=== PATIENT | female | born 1940 | race Caucasian/White ===

== ENCOUNTER 2016-10-30 17:25 | Inpatient (IN) | payer MEDICAID ==
[~2016-10-30] VITALS: Ht 165.1 cm; Wt 115.3 kg
--- NOTE | ~2016-10-30 | ECH ---
Transthoracic Echocardiography Report (TTE) Demographics Patient Name RANDY HINES Date of Study 11/02/2016 Patient Number [id number] Visit Number [id number] Date of 1940 Room Number 429 Accession Number [id number] Gender Female Age 76 year(s) Referring Stephan Blair Industrial Automation Engineer Moira Sims [facility] Physician MD Tristan Bucio MD Physician Interpreting Edel Malagon MD [employer] Physician Supervising Ordering Physician Stephan Blair MD, MD/P Nurse Stress Rn Cvor Conclusions Summary Technically fair exam. The estimated left ventricular ejection fraction is 60-65%. Mild to moderate left ventricular hypertrophy. Diastolic assessment reveals Grade I diastolic dysfunction. Mild-moderate tricuspid regurgitation by color Doppler. There is mild pulmonary hypertension. The pulmonary pressure (RVSP) is 43 mmHg. Procedure Type of Study TTE procedure:Echo Complete SF. Procedure Date Date: 11/02/2016 Start: 07:30 AM Technical Quality: Fair due to body habitus. Indications:Elevated Troponin. Appropriate Use Criteria: 9 Height: 65 inches Weight: 242 pounds BSA: 2.15 m Rhythm: Within normal limits HR: 76 bpm BP: 107/63 mmHg M-Mode/2D Measurements LV Diastolic Dimension: 3.81 cm LV Systolic Dimension: 3.01 cm LV Septum Diastolic: 1.53 cm LV PW Diastolic: 1.32 cm AO Root Dimension: 2.79 cm Cardiac Output: 5.41 l/min LA Dimension: 3.51 cm Cardiac Index: 2.52 l/min*m LA volume index: 15 ml/m LVOT: 2.22 cm RV Base: 3.2 cm LVOT VTI: 18.41 cm RV Mid: 2.5 cm LV Stroke volume: 71.22 ml RV Length: 5.8 cm LV Stroke volume index: 33.13 ml/m Doppler Measurements AV Mean Gradient: 3.02 mmHg MV Peak E-Wave: 0.58 m/s LVOT Peak Velocity: 0.79 m/s MV Peak A-Wave: 0.72 m/s AV Area (Continuity):2.99 cm MV P1/2t: 74.1 msec TR Velocity:3.1 m/s TR Gradient:38.44 mmHg MV Deceleration Time: 261.1 msec Estimated RAP:5 mmHg MV Area (PHT): 2.97 cm Estimated RVSP: 43 mmHg PV Peak Velocity: 0.64 m/s PV Peak Gradient: 1.62 mmHg Estimated PASP: 43.44 mmHg RA Area: 13 cm Findings Left Ventricle The left ventricle is normal in size . Mild to moderate left ventricular hypertrophy. Diastolic assessment reveals Grade I diastolic dysfunction. Right Ventricle Normal right ventricle structure and function. Left Atrium Normal left atrial size. Right Atrium Normal right atrial size. Mitral Valve Normal mitral valve structure and function. Aortic Valve Normal aortic valve structure and function. Tricuspid Valve Normal tricuspid valve structure and function. Mild-moderate tricuspid regurgitation by color Doppler. There is mild pulmonary hypertension. The pulmonary pressure (RVSP) is 43 mmHg. Pulmonic Valve The pulmonic valve is not well visualized. Pericardial Effusion No evidence of pericardial effusion. Miscellaneous Visualized portions of the aortic root and ascending aorta appear normal in size. Pleural Effusion No evidence of pleural effusion. Signature
--- NOTE | 2016-11-03 18:43 | ER ---
ADMIT: 10/30/2016 RM/LOC: 429 [facility] MR#: [id number] [address] [address] DONNYRANDY [address] [place] [address] Emergency Room Report SEX: F AGE: 76 : 1940 DATE: 10/30/2016 HISTORY OF PRESENT ILLNESS: The patient is a 76-year-old female, brought in by ambulance with fever of 103. She was dizzy. She has some pelvic pain. She says it has been going on and off for about a month. She was also nauseated. She points to the suprapubic area. She had fever and chills yesterday and nausea. No diarrhea. No back pain. She has never had these symptoms before, so she was concerned not enough to come earlier according to the granddaughter's. REVIEW OF SYSTEMS: Positive for UTI and treated with Bactrim. PAST MEDICAL HISTORY: Diabetes type 2, on insulin and hypertension. MEDICATIONS: See T-sheet. ALLERGIES: SEE T-SHEET. PHYSICAL EXAMINATION: GENERAL: Very pleasant, well-nourished and well- developed female. Alert, mildly to moderately anxious. VITAL SIGNS: Blood pressure 105/61, heart rate 88, respirations 20, temp is 103.7, and O2 sats 96%. HEENT: Normal. NECK: Supple. RESPIRATIONS: No distress. CVS: Regular in rate and rhythm. No suprapubic tenderness. No costovertebral angle tenderness. SKIN: Good color and turgor. She does have brawny edema in the left lower extremity. NEUROLOGIC: She is oriented x4. Mood and affect are appropriate. ADMIT: 10/30/2016 RM/LOC: 429 [facility] MR#: [id number] [address] [address] RANDY HINES [address] [place] [address] Emergency Room Report SEX: F AGE: 76 : 1940 LABORATORY DATA: Dr. Singh reviewed her x-ray, which was negative. Her troponin is 0.644, glucose 285, BUN is 27, and potassium 3.4. WBC is 14.4 with a hemoglobin of 10.8. Her INR is 1.07. Magnesium is 1.4. Lactic acid 2.1 and phosphorus 1.3. Her urine shows rbc's of 26, wbc's 91, leukocytes 3+, and blood 2+. EKG, normal sinus rhythm at 81. CLINICAL IMPRESSION: Urinary tract infection, severe sepsis most likely secondary to urinary tract infection, hyperglycemia, and fever with abdominal pain. Dr. Melchor admitted this patient for Dr. Christensen. The patient is receiving the sepsis protocol hydration, also the antibiotics, Zosyn and Levaquin. She is awaiting room placement. ALISSA Diaz / Jameson Lozoya MD / modl JOB #: [id number] CC: Juana Christensen MD, Attending Physician John Kidd MD, Family Physician
--- NOTE | 2016-11-04 08:29 | CO ---
ADMIT: 10/30/2016 RM/LOC: 429 [facility] MR#: [id number] [address] [address] RANDY HINES [address] [place] [address] Consultation SEX: F AGE: 76 : 1940 DATE OF CONSULTATION: 10/31/2016 ATTENDING PHYSICIAN: John Kidd CONSULTING PHYSICIAN: Vikas De La Rosa MD HISTORY OF PRESENT ILLNESS: This is a 76-year-old speaking female, seen in surgical consultation for Dr. Kidd for possible cholecystitis. Randy has recent urinary tract infections and is admitted with urosepsis. She had a CT scan performed for some right lower quadrant pain today, and on that test, there was evidence of possible thickening of the gallbladder wall and pericholecystic fluid. No gallstones were demonstrated. She does report some right-sided abdominal pain and also has right shoulder pain. She has had only mild nausea and not vomited. She had worsening of her sepsis labs today with procalcitonin elevating. I did have polygraph operator via the phone to discuss her care. PAST MEDICAL HISTORY: Type 2 diabetes, hypertension, microalbuminuria, gastroesophageal reflux disease, lumbar spinal stenosis, hypothyroidism, depression, osteopenia, and obstructive sleep apnea. MEDICATIONS: At home: 1. Zoloft. 2. Atorvastatin. 3. Metformin. 4. Aspirin. 5. Lantus. 6. Humalog. 7. Neurontin. 8. Hyzaar. 9. Os-Isai. 10.Omeprazole. 11.VESIcare. 12.Vitamin D. 13.Synthroid. 14.ProAir. ALLERGIES: MANJEET INHIBITORS. PAST SURGICAL HISTORY: Carpal tunnel release. SOCIAL HISTORY: She is a former smoker and quit 1997. She is retired and does not drink alcohol. She is . FAMILY HISTORY: Reviewed and noncontributory. REVIEW OF SYSTEMS: A 10-point review of systems is performed. Symptoms mentioned are described in the history of present illness, and the remainder of the systems are negative for recent change. ADMIT: 10/30/2016 RM/LOC: 429 [facility] MR#: [id number] [address] [address] RANDY HINES [address] [place] [address] Consultation SEX: F AGE: 76 : 1940 PHYSICAL EXAMINATION: GENERAL: She is currently alert, oriented, and in no acute distress. She has been afebrile today. VITAL SIGNS: Stable. Cranial nerves are grossly intact. NECK: No lymphadenopathy. Trachea is midline. LUNGS: Clear bilaterally. HEART: Regular rate and rhythm. ABDOMEN: Soft, obese, tender in the right lower quadrant without luis peritoneal sign or palpable mass. EXTREMITIES: No clubbing, cyanosis, or edema with no focal neurologic deficit. Calves are soft bilaterally. LABORATORY STUDIES: Sodium 140, potassium 3.3, chloride 106, CO2 of 23, BUN of 23, creatinine of 1.4, bilirubin 1.1, alkaline phosphatase 100, AST 42, ALT of 34, lipase 233, troponin elevation of 3.19. White blood cell count of 11.2, hemoglobin of 10.6, and platelet of 164. IMPRESSION: 1. Possible cholecystitis by CT scan. 2. Urosepsis. PLAN: I have recommended further workup with ultrasound and HIDA scan for characterization of the gallbladder issue. If there is nonfilling and ultrasound findings confirming the diagnosis, we will have additional discussion with Randy regarding laparoscopic versus open cholecystectomy. If there is filling of the gallbladder on HIDA, would plan for continued management of the urosepsis and not plan for surgical intervention. I discussed this with Randy, and we will again discuss that pending test results. Vikas De La Rosa MD/ analisa JOB #: [id number] CC: John Kidd, Attending Physician John Kidd, Family Physician
[2016-11-08] MEDS ORDERED: ATORVASTATIN CA80 MG PO (12:14)
[2016-11-08] MEDS ORDERED: OYSTER SHELL C500 MG PO (12:14)
[2016-11-08] MEDS ORDERED: GLUCOPHAGE1000 MG PO (12:14)
[2016-11-08] MEDS ORDERED: COSOPT PLUS DPS10 ML OU (12:15)
[2016-11-08] MEDS ORDERED: ALPHAGAN-P5 ML OU (12:15)
[2016-11-08] MEDS ORDERED: VESICARE5 MG PO (12:15)
[2016-11-08] MEDS ORDERED: PRILOSEC DPS20 MG PO (12:15)
[2016-11-08] MEDS ORDERED: TEARS NATURAL D15 ML OU (12:15)
[2016-11-08] MEDS ORDERED: HUMALOG100 UNIT/1 SQ (12:16)
[2016-11-08] MEDS ORDERED: SYNTHROID DP0.075 MG PO (12:16)
[2016-11-08] MEDS ORDERED: ZOLOFT DPS100 MG PO (12:16)
[2016-11-08] MEDS ORDERED: ASPIRIN EC81 MG PO (12:16)
[2016-11-08] MEDS ORDERED: LANTUS100 UNITS/ SQ (12:16)
[2016-11-08] MEDS ORDERED: NEURONTIN DPS300 MG PO (12:17)
[2016-11-08] MEDS ORDERED: LEVAQUIN DPS500 MG PO (12:17)
[2016-11-08] MEDS ORDERED: NORVASC5 MG PO (12:17)
--- NOTE | 2016-11-09 12:49 | DS ---
ADMIT: 10/30/2016 RM/LOC: 429 [facility] MR#: [id number] [address] [address] DONNYRANDY Carlin [address] [place] [address] Discharge Summary SEX: F AGE: 76 : 1940 ADMISSION DATE: 10/30/2016 DISCHARGE DATE: 11/07/2016 HISTORY AND PHYSICAL: Please see the chart. LABORATORY AND X-RAY DATA: Please refer to the electronic medical record for laboratory and x-ray summaries. CLINICAL COURSE: This 76-year-old female was admitted with sepsis. The patient had been febrile and she had also had some problems with possible cholecystitis and right-sided pain. The patient's cultures showed E. coli and blood cultures also showed E. coli. The patient was placed on intravenous fluids and intravenous Zosyn, vancomycin, and Levaquin. The E. coli was sensitive to Levaquin and the Zosyn. The vancomycin was subsequently discontinued. The patient's temperature came down to normal. Her white count came down to normal. Her blood pressure actually was mildly elevated and required some antihypertensive medication. The patient continued to improve. At the time of discharge, she was afebrile. Her white count was down to normal. She was feeling much better. Her only complaint is some neck pains and she did have some arthritis and was treated with some pain medications. The patient's usual physician is Dr. Kidd and I will have her see Dr. Kidd in one week. She will be continued on: 1. Aspirin 81 mg daily. 2. Lipitor 40 mg daily. 3. Neurontin 300 mg b.i.d. 4. Norvasc 5 mg daily. 5. Oyster shell calcium with vitamin D 500 mg b.i.d. 6. Protonix 40 mg daily. 7. Synthroid 0.075 mg daily. 8. VESIcare 5 mg daily. 9. Zoloft 100 mg daily. 10.She will take her eyedrops including Cosopt and Ramadan. 11.She is continue to take Levemir 24 units daily. 12.Her Lovenox is discontinued. 13.She will be continued on her Levaquin 500 mg orally daily. She will be seen by Dr. Kidd in the next week. ADMIT: 10/30/2016 RM/LOC: 429 [facility] [place] MR#: [id number] [address] [address] DONNYRANDY Carlin [address] [place] [address] Discharge Summary SEX: F AGE: 76 : 1940 FINAL DIAGNOSES: 1. Sepsis with E. coli (Escherichia coli) septicemia. 2. E. coli (Escherichia coli) urinary tract infection. 3. Hypertension. 4. Insulin-dependent type 2 diabetes mellitus. 5. Obesity. 6. Hypothyroidism. 7. Gastroesophageal reflux disease. 8. Glaucoma. 9. Diabetic neuropathy. 10.History of depression. Darvin Rothman MD/ njv JOB #: [id number] CC: John Kidd MD, Attending Physician John Kidd MD, Family Physician
--- NOTE | 2016-11-16 08:36 | HP ---
ADMIT: 10/30/2016 RM/LOC: 429 [facility] MR#: [id number] [address] [address] RANDY HINES [address] [place] [address] History and Physical SEX: F AGE: 76 : 1940 DATE OF SERVICE: 10/31/2016 CHIEF COMPLAINT: Fevers, abdominal pain, and headache. HISTORY OF PRESENT ILLNESS: Randy is a very pleasant 76-year-old female, but very poor historian, who presented to the [facility] Emergency Department last evening with approximately 3 to 4 days of generally not feeling well and beginning of low abdominal and pelvic pain. She was last seen in my clinic back on the 06 of October for a diabetic check and at that time, mentioned that she was having some vague urinary symptoms. Urinalysis at that time showed small leukocyte esterase and only 2 to 5 whites per high-powered field. Urine culture ultimately however ended up growing out E. coli, which was pansensitive to everything tested. It should be noted that she also had one additional culture positive for E. coli in her urine back on May 27, 2016. Her most recent urinary tract infection was treated with a three-day course of Bactrim DS and she seemed to do well up until about 3 to 4 days ago when she began having bilateral, but more right- sided right lower quadrant abdominal pain. She actually denies a whole lot of dysuria, frequency, urgency, or hematuria at this point. She denies any cough or rashes. She has had some headache with this. She has had a little bit of vomiting and she also claims a little bit of flank pain. Again, she is a very poor historian. She cannot remember when her last visit was in clinic. She states that she has not been feeling well since getting the antibiotics on the , but has not called my office to let me know that she was having any issues. PAST MEDICAL HISTORY: Remarkable for: 1. Type 2 diabetes mellitus, most recent hemoglobin A1c of 9.6. She has generally been noncompliant with her insulin therapy. 2. Hypertension. 3. Microalbuminuria. 4. Gastroesophageal reflux disease. 5. Lumbar spinal stenosis. 6. Hypothyroidism. 7. Depression. 8. Osteopenia. 9. Obstructive sleep apnea. PAST SURGICAL HISTORY: She had a right carpal tunnel surgery in the past. MEDICATIONS: Her current medications are as follows: 1. Zoloft 100 mg at h.s. 2. Atorvastatin 80 mg at h.s. 3. Metformin 1000 mg twice daily. 4. Aspirin 81 mg daily. 5. Lantus 27 units at bedtime. 6. Humalog 12 units prior to meals. 7. Neurontin 300 mg twice daily. 8. Hyzaar 100/12.5 one tab daily. ADMIT: 10/30/2016 RM/LOC: 429 [facility] MR#: [id number] [address] [place] [address] RANDY HINES [address] [place] [address] History and Physical SEX: F AGE: 76 : 1940 9. Os-Bianca plus D 500/200 one tab twice daily. 10.Omeprazole 20 mg daily. 11.VESIcare 5 mg daily. 12.Vitamin D 2000 units daily. 13.Synthroid 75 mcg daily. 14.ProAir two puffs every 4 hours as needed. ALLERGIES: SHE IS ALLERGIC TO MANJEET INHIBITORS, WHICH CAUSE COUGH. SOCIAL HISTORY: She is a former smoker, quit in 1997. Prior to that, she was smoking approximately 1-1/2 packs per day for most of her life. She is retired. She does not drink alcohol. She is . She is Croatian speaking. FAMILY HISTORY: Noncontributory. REVIEW OF SYSTEMS: As per HPI. All others were reviewed and were negative. PHYSICAL EXAMINATION: VITAL SIGNS: Her blood pressure is 96/54, pulse 82, respirations 20, temp 100.5, and O2 saturation is 94% on 1 to 2 L nasal cannula. GENERAL: She is awake, alert, not in acute distress, but is mildly ill appearing in the hospital bed. HEENT: Normocephalic and atraumatic. NECK: Supple. No lymphadenopathy. No thyromegaly. HEART: Regular rate and rhythm. No murmurs, gallops, or rubs. LUNGS: Clear to auscultation bilaterally. ABDOMEN: Obese, soft, she is tender in the right lower quadrant, not in the left lower quadrant or even suprapubically. She has no flank pain with percussion. EXTREMITIES: No cyanosis, clubbing, or edema. LABORATORY AND X-RAY DATA: UA on admission through the ER showed 2+ blood, 3+ leukocyte esterase, 91 whites per high-powered field, and 26 red cells per high-powered field consistent with urinary tract infection. CBC initially showed a white count of 14.4, hemoglobin of 10.8, and a platelet of 168. Repeat blood count this morning shows a white count down to 11.2, hemoglobin 10.6, and platelet of 164. PT/INR was unremarkable. Lactic acid has been elevated on a couple of occasions, initially 2.1 and most recently up to 3.2. CMP initially showed a potassium of 3.4, glucose 285, creatinine 1.4, calcium 8.5, phosphate 1.3, mag of 1.4, and she had a troponin which was elevated at 0.64. Initial pro bianca was 2.79, this is actually increased to 7 in the overnight. Chest x-ray was unremarkable. Repeat CMP this morning shows her potassium to 3.3, creatinine stable 1.4, glucose is 299. Blood cultures, no growth to date x2. Urine culture is pending. EKG showed sinus rhythm without any hyperacute ST or T-wave changes. ASSESSMENT: ADMIT: 10/30/2016 RM/LOC: 429 [facility] MR#: [id number] [address] [facility] [address] [place] [address] RANDY HINES O [address] [place] [address] History and Physical SEX: F AGE: 76 : 1940 1. Sepsis. 2. Urinary tract infection. 3. Right lower quadrant abdominal pain. 4. Hypomagnesemia. 5. Hyperphosphatemia. 6. Hypokalemia. 7. Diabetes mellitus type 2. 8. History of medication noncompliance. 9. Hypothyroidism. 10.Obstructive sleep apnea. 11.Hypertension. 12.Mixed urinary stress and urge incontinence. 13.Microalbuminuria. 14.Depression. 15.Gastroesophageal reflux disease. 16.Lumbar spinal stenosis. PLAN: Plan at this time, Randy has been started on vancomycin and Zosyn. I am going to add Levaquin to this. With her right lower quadrant abdominal pain, I am going to check a CT scan of her abdomen and pelvis to rule out an occult appendicitis. This should also give us information of whether she may also have pyelonephritis though I think that is less likely. She is not complaining much in the way of flank pain. I think her cultures did ultimately grow out E coli. We will see what the sensitivities on that show. In addition, she has had this elevated troponin through the ER. We are going to trend that with an additional two sets and depending on what that show, we may ask for a Cardiology consult. We will get her resumed on her home insulin regimen and write for a supplemental insulin scale to keep her sugars under better control. I am going to hold her metformin and her Hyzaar for right now given her borderline kidney function. Further management will be dependent on Randy's clinical course. John Kidd MD/ analisa JOB #: [id number] CC: John Kidd, Attending Physician John Kidd, Family Physician
--- NOTE | 2016-11-27 10:36 | CO ---
ADMIT: 10/30/2016 RM/LOC: 429 [facility] MR#: [id number] [id number] [place], [place] [address] RANDY HINES [address] [place] [address] Consultation SEX: F AGE: 76 : 1940 DATE OF CONSULTATION: 10/31/2016 ATTENDING PHYSICIAN: John Kidd CONSULTING PHYSICIAN: Alex Hollingsworth MD REASON FOR CONSULTATION: Abnormal cardiac enzymes. HISTORY OF PRESENT ILLNESS: Ms. Hines is a 76-year-old Latin-[place] Samoan-speaking female, who presented on the with fevers, abdominal pain, and headache. She denies any chest pain, pressure, tightness, or shortness of breath. Actually, the pain is improving with antibiotics. She is denying any weight gain or weight loss. She has recently had a fall and this is causing some right shoulder pain, but this is more musculoskeletal in nature she feels. PAST MEDICAL HISTORY: Type 2 diabetes, hypertension, GERD, lumbar spinal stenosis, hypothyroidism, depression, obstructive sleep apnea, and right carpal tunnel surgery in the past. MEDICATIONS: At the time of consultation include saline, Vanco, and Zosyn. ALLERGIES: NONE KNOWN. FAMILY HISTORY: Brother with an [place] in his 70s. SOCIAL HISTORY: She is a former smoker. Smoked for about 18 years. She is retired, nondrinker. She is and Samoan-speaking. REVIEW OF SYSTEMS: A full 12-point review of systems was obtained and deemed to be negative except for the pertinent dictated positives in the HPI. PHYSICAL EXAMINATION: VITAL SIGNS: Her blood pressure is 115/73, pulse of 67 regular, temp 96.7, her weight is 240 pounds. GENERAL: She is a pleasant well-nourished, well-developed Latin-[place] female, in no acute distress. Alert and oriented x3. NECK: Shows brisk carotid upstrokes. No JVD or bruit. CHEST: Clear. HEART: Regular. ABDOMEN: Soft. EXTREMITIES: No cyanosis, clubbing, or edema. MUSCULOSKELETAL: Normal. NEUROLOGIC EXAM: Normal. SKIN: [place], warm, and dry. LABORATORY AND X-RAY DATA: Laboratory and ancillary data shows a potassium of 3.3, creatinine 1.4, magnesium is 1.4, CK 429, MB 6.9, troponin 3.19. This is up from 0.644 on admission. Her white blood cell count is 11.2, hemoglobin 10.6, and a platelet count of 164,000. Her lactic acid is 3.2 with a ADMIT: 10/30/2016 RM/LOC: 429 [facility] MR#: [id number] [address] [address] DONNY RANDY Carlin [address] [place] [address] Consultation SEX: F AGE: 76 : 1940 procalcitonin 7.01. EKG notes no evidence of ischemia or infarction. Telemetry shows no arrhythmias. ASSESSMENT AND PLAN: 1. Sepsis. 2. Abdominal pain. 3. Abnormal cardiac enzymes. 4. Diabetes mellitus. 5. Hypokalemia. 6. Hypomagnesemia. Suspected troponin, CK, and MB elevation are due to sepsis. Negative EKG changes and is not complaining of any chest pain. No need for heparin or aspirin or statin at this point. I agree with surgical workup for abdominal pain and infection. I will get an echocardiogram. Thank you for the consultation. Alex Hollingsworth MD/ analisa JOB #: [id number] CC: John Kidd, Attending Physician John Kidd, Family Physician
== END 2016-11-07 18:45 | disposition home or self-care (01) | DRG 872 ==
LOC: ER 17:25 → 4PCU 20:00
PROVIDERS: ADMIT Family Medicine
DX: A41.51 Sepsis due to Escherichia coli [E. coli] (principal); N17.9 Acute kidney failure, unspecified; E11.65 Type 2 diabetes mellitus with hyperglycemia; E11.40 Type 2 diabetes mellitus with diabetic neuropathy, unspecified; K81.9 Cholecystitis, unspecified; Z68.41 Body mass index [BMI] 40.0-44.9, adult; N39.0 Urinary tract infection, site not specified; E83.42 Hypomagnesemia; E83.39 Other disorders of phosphorus metabolism; R65.20 Severe sepsis without septic shock; I10 Essential (primary) hypertension; K21.9 Gastro-esophageal reflux disease without esophagitis; M48.06 Spinal stenosis, lumbar region; E66.9 Obesity, unspecified; H40.9 Unspecified glaucoma; E03.9 Hypothyroidism, unspecified; F32.9 Major depressive disorder, single episode, unspecified; M85.80 Other specified disorders of bone density and structure, unspecified site; G47.33 Obstructive sleep apnea (adult) (pediatric); E87.6 Hypokalemia; N39.46 Mixed incontinence; Z79.82 Long term (current) use of aspirin; Z87.891 Personal history of nicotine dependence; Z91.14 Patient's other noncompliance with medication regimen; Z79.4 Long term (current) use of insulin

== ENCOUNTER 2016-12-10 07:04 | Day surgery (SDC) | payer MEDICAID ==
[~2016-12-10] VITALS: Ht 165.1 cm; Wt 104.3 kg
--- NOTE | ~2016-12-10 | CATH ---
Cardiac Diagnostic Report Demographics Patient Name DONNY Gillis Gender Female Date of 1940 Age 76 year(s) Patient Number [id number] Date of Study 12/10/2016 Visit Number [id number] Room Number Corporate ID Ht 167.64 cm Wt 102.97 kg Accession Number [id number] BSA 2.11 m kg/m Referring Bernabe Awad MD Primary Physician Physician Performing Edel Malagon MD Secondary Physician Physician Diagnostic Edel Malagon MD Assisting Physician Physician Interventional Physician Skidder Physician Findings and Conclusions Diagnostic Findings and Conclusion 1. Single vessel non obstructive CAD. Diagnostic Recommendations 1. Medical management. Procedure Description The patient was brought to the diagnostic cardiac catheterization-EP laboratory in the fasting, non-sedated state. Informed consent was obtained in the written and verbal form after the risks and benefits were explained. The patient had no further questions and agreed to proceed. The planned puncture-incision site(s) were shaved and prepped with ChloraPrep and draped in the usual sterile manner. Conscious sedation, supplemental oxygen, and pain control medications were delivered by a registered nurse under physician guidance. Surface ECG rhythm, blood pressure measurement, and pulse oximetry were monitored throughout the procedure. Arterial access. The access site was infiltrated with lidocaine. The vessel was entered with the Seldinger technique. A sheath was advanced into the vessel and used for catheter placement. Selective left coronary angiography. A catheter was advanced into the left coronary vessel ostium under Fluoroscopic guidance. Contrast was injected by hand. Images were obtained in multiple projections. Selective right coronary angiography. A catheter was advanced into the right coronary vessel ostium under fluoroscopic guidance. Contrast was injected by hand. Images were obtained in multiple projections. Left heart catheterization. A catheter was advanced across the aortic valve to the left ventricle under fluoroscopic guidance. Resting hemodynamics were obtained. Arterial artery hemostasis was achieved. The patient was transferred to a regular nursing floor via cart accompanied by a nurse. The patient left the laboratory in stable condition. Diagnostic Cath Status: Elective Procedure Procedure Type Diagnostic procedure:Angiography:, Coronary Angios w/[facility] Indications: Abnormal nuclear perfusion test, Chest pain, Diabetes, Hyperlipidemia, Hypertension, Early family history of CAD and Tobacco use-prior. The procedure was explained in detail to the patient. Risks, complications and alternative treatments were reviewed. Written consent was obtained. Medications Reviewed with Patient prior to Procedure. Complications: No Complication. Angiographic Findings Dominance: Mixed Cardiac Arteries and Lesion Findings LMCA: Normal (0% Stenosis). LAD: Normal (0% Stenosis). Lesion on Dist LAD: 50% stenosis . LCx: Abnormal. RCA: Normal (0% Stenosis). Coronary Tree Procedure Data Procedure Date Date: 12/10/2016Start: 08:53 AM Entry Locations - Percutaneous access was performed through the Right Femoral artery (Primary location). A 5 Fr sheath was inserted. Hemostasis was successfully obtained using Mechanical Compression. - Percutaneous access was performed through the Right Radial artery. A 6 Fr sheath was inserted. Hemostasis was successfully obtained using a TR band. Procedure Medications Order and Administration + + +-------+-------+ !Time !Medication !Dosage !Route ! + + +-------+-------+ !12/10/2016 !Versed !1 mg !I.V. ! !08:56 AM ! ! ! ! + + +-------+-------+ 12/10/2016 !Fentanyl !25 mcg !I.V. ! !08:57 AM ! ! ! ! + + +-------+-------+ !12/10/2016 !Sodium Chloride !10 ml !I.V. ! !08:57 AM ! ! ! ! + + +-------+-------+ !12/10/2016 !Versed !1 mg !I.V. ! !09:09 AM ! ! ! ! + + +-------+-------+ !12/10/2016 !Fentanyl !25 mcg !I.V. ! !09:09 AM ! ! ! ! + + +-------+-------12/10/2016 !SF Radial Cocktail: 200mcg Nitro, 2.5 mg ! !I.A. ! !09:10 AM !Verapamil, 5000u Heparin ! ! ! + + +-------+-------+ 12/10/2016 !Fentanyl !25 mcg !I.V. ! !09:21 AM ! ! ! ! + + +-------+-------+ !12/10/2016 !Fentanyl !25 mcg !I.V. ! !09:34 AM ! ! ! ! + + +-------+-------+ Devices Used - ACATH 5FR MULTIPACK CATHETERSwas used for:Coronary Angios. - ACATH 5F PRC CATHETER 100CMwas used for:Right coronary angiography. Contrast Material - Isovue 37735 ml Fluoroscopy Time: Diagnostic: 7:36 minutes. Total: 7:36 minutes. Fluoroscopy Dose: Diagnostic: 753 mGy. Total: 753 mGy. Estimated Blood Loss: 9 ml. Medical History Performed Procedures and Imaging Results - Stress testing with SPECT MPIwas performed on 11/25/2016. Results were: Positive. Risk/Extent of ischemia was: Intermediate risk. Allergies - Other:(Hai Inhibitors). Risk Factors The patient risk factors include:hypertension, family history of premature CAD, insulin-treated diabetes mellitus, last creatinine: 1.2 mg/dl, creatinine clearance: 64.83 ml/min, dyslipidemia and former tobacco use. Admission Data Admission Date: 12/10/2016 Admission Time: 07:04 AM Admit Source: Other Clinical Evaluation Leading to Procedure - The patient's CAD presentation was assessed as: Stable angina. 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 Anti-anginal medications were prescribed during the past two weeks. The medication is: Ca channel Blockers. Hemodynamics Condition: Rest O2 Consumption: Estimated: 186.56Heart Rate: 64 bpm Pressures (mmHg) +-----+ + !Site !Pressure ! +-----+ + !AO !110/49 (73) ! +-----+ + !LV !121/5 ,9 ! +-----+ + !AO !114/52 (78) ! +-----+ + !LV !117/5 ,12 ! +-----+ + Valve Gradients and Areas + +---------+---------+---------+ +---------+ + !Valve !Peak !Mean !Area !Index !Flow !Source ! + +---------+---------+---------+ +---------+ + !Aortic !1 !0 ! ! ! ! ! + +---------+---------+---------+ +---------+ + !Aortic !1 !0 ! ! ! ! ! + +---------+---------+---------+ +---------+ + Shunts Oxygen Values O2 Consumption 186.56 Discharge Data Discharge Date: 12/10/2016 Hospital Status: Outpatient Signatures
[~2016-12-10 07:04] MED LIST: ALPHAGAN-P5 ML OU; ASPIRIN EC81 MG PO; ATORVASTATIN CA80 MG PO; COSOPT PLUS DPS10 ML OU; GLUCOPHAGE1000 MG PO; HUMALOG100 UNIT/1 SQ; LANTUS100 UNITS/ SQ; LEVAQUIN DPS500 MG PO; NEURONTIN DPS300 MG PO; NORVASC5 MG PO; OYSTER SHELL C500 MG PO; PRILOSEC DPS20 MG PO; SYNTHROID DP0.075 MG PO; TEARS NATURAL D15 ML OU; VESICARE5 MG PO; ZOLOFT DPS100 MG PO
== END 2016-12-10 14:37 | disposition home or self-care (01) ==
LOC: SSS
DX: I25.118 Atherosclerotic heart disease of native coronary artery with other forms of angina pectoris (principal); E03.9 Hypothyroidism, unspecified; F32.9 Major depressive disorder, single episode, unspecified; G47.33 Obstructive sleep apnea (adult) (pediatric); E11.40 Type 2 diabetes mellitus with diabetic neuropathy, unspecified; H40.9 Unspecified glaucoma; E78.5 Hyperlipidemia, unspecified; I10 Essential (primary) hypertension; M48.06 Spinal stenosis, lumbar region; K21.9 Gastro-esophageal reflux disease without esophagitis; Z87.891 Personal history of nicotine dependence; Z98.890 Other specified postprocedural states; Z79.82 Long term (current) use of aspirin; Z79.899 Other long term (current) drug therapy; Z82.49 Family history of ischemic heart disease and other diseases of the circulatory system